=== PATIENT | female | born 1955 | race Caucasian/White ===

== ENCOUNTER → 2017-04-28 14:56 | Outpatient (CLI) | payer BC, SELFPAY ==
--- NOTE | 2017-04-28 14:59 | MM_ITS ---
MM Dig screening mamm BI w/CAD CAD Screening COMPARISON: Digital mammograms 03/26/2016 and 03/15/2015 INDICATION: There is a history of breast cancer in a patient maternal cousin. TECHNIQUE: Standard CC and MLO images were obtained. R2 CAD reviewed. FINDINGS: Moderate fiber glandular densities are seen in the central portions of both breasts. There are stable tiny nodular density upper outer quadrant right breast. There is a benign-appearing calcification left breast. There is no suspicious lesion and there are no suspicious microcalcifications. IMPRESSION: BI-RADS Category: 2 Benign Finding(s) RECOMMENDED FOLLOW-UP: 1YR - 1 YEAR FOLLOW-UP (A letter has been sent to the patient regarding results of the study.)
--- NOTE | 2017-04-28 14:59 | XR_ITS ---
XR DEXA axial skeleton HISTORY: ITS.REASON: Menopausal ORDERING PHYSICIAN: David Jimenez MD PATIENT AGE: 62 years COMPARISON: None FINDINGS: The BMD measured at the left femoral neck is 0.856 g/cm squared with a T score of T-1.3 . This is considered Osteopenic according to the World Health Organization criteria. Fracture risk is Moderate. Treatment is advised. The L1 L4 density has a T score of 0.2. The lumbar spine density has increased by 1.5% and the hip density has increased by 0.3% compared to 03/26/2016 IMPRESSION: Osteopenia with moderate fracture risk. Recommend follow-up exam April 2019
== END ==
PROVIDERS: Family Provider Family Medicine; PCP Family Medicine; Visit Provider Obstetrics & Gynecology
DX: Z12.31 Encounter for screening mammogram for malignant neoplasm of breast (principal); Z78.0 Asymptomatic menopausal state; Z13.820 Encounter for screening for osteoporosis
CPT/HCPCS: 77066; 77067; 77080

== ENCOUNTER → 2018-05-04 15:47 | Outpatient (CLI) | payer BC, SELFPAY ==
--- NOTE | 2018-05-04 15:49 | MM_ITS ---
MM Dig screening mamm BI w/CAD CAD Screening COMPARISON: Digital mammograms with CAD 04/28/2017 and 03/26/2016 INDICATION: There is a history of breast cancer in patient's paternal grandmother TECHNIQUE: Standard CC and MLO images were obtained. R2 CAD reviewed. FINDINGS: Moderate diffuse fibroglandular densities are seen throughout both breasts. Again noted is a stable tiny nodular density inner quadrant of the right breast and a stable tiny nodular density near the axillary tail the right breast likely a low-lying node.. There is a benign-appearing calcification in each breast. There is no suspicious lesion and there are no suspicious microcalcifications. IMPRESSION: Fibrofatty parenchyma with no suspicious lesion seen BI-RADS Category: 2 Benign Finding(s) RECOMMENDED FOLLOW-UP: 1YR - 1 YEAR FOLLOW-UP (A letter has been sent to the patient regarding results of the study.)
== END ==
PROVIDERS: PCP Family Medicine; Visit Provider Obstetrics & Gynecology
DX: Z12.31 Encounter for screening mammogram for malignant neoplasm of breast (principal)
CPT/HCPCS: 77067

== ENCOUNTER → 2020-04-05 10:56 | Outpatient (CLI) | payer MEDICARE, OTHER, SELFPAY ==
[2020-04-05 12:43] LABS: Coronavirus 19 IgG Antibody Negative (Negative); Coronavirus 19 IgM Antibody Negative (Negative)
== END ==
PROVIDERS: Visit Provider Internal Medicine Gastroenterology
DX: Z01.812 Encounter for preprocedural laboratory examination (principal); Z20.822 Contact with and (suspected) exposure to COVID-19; Z12.11 Encounter for screening for malignant neoplasm of colon
CPT/HCPCS: 36415; 86328

== ENCOUNTER 2020-04-06 07:49 | Day surgery (SDC) | payer MEDICARE, OTHER, SELFPAY ==
[2020-04-05 11:27] VITALS: BMI 26.5
[2020-04-06 08:29] VITALS: BP 151/70; PULSE 77; RESP 18; TEMP 36.2; O2SAT 98
[2020-04-06 09:08] VITALS: O2SAT 98
--- NOTE | 2020-04-06 09:37 | HMH.PROC ---
[facility] Procedure Note Procedure Note:: Colonoscopy Procedure Report: Colonoscopy with cold snare polypectomy Endoscopist: Bart Duque II, MD Referring physician: Raul Fang MD Date of Procedure: April 06, 2020 Equipment: Olympus 180 variable stiffness pediatric colonoscope Sedation: MAC sedation Indication: Mrs. Pascual is a 65-year-old female who is here for high risk screening colonoscopy. The patient does state that her brother had colon cancer in his late 40s/early 50s and her mother had colon cancer in her late 70s. The patient does state that she lost 10 pounds in 1 month and states this was because everything tasted salty. She also has had some bowel irregularity with diarrhea that alternates with constipation. She states that her last colonoscopy may have been in 2008 (with me). She reports no abdominal pain, rectal bleeding or change in bowel habits. Procedure: Prior to the procedure, a history and physical exam was performed, and patient's medications and allergies were reviewed. The risks, benefits and alternatives of the sedation and procedure were discussed with the patient. All questions were answered and informed consent was obtained. The patient was brought to the procedure room. Patient identification and proposed procedure were verified by the physician and the nurse. The patient was placed in a left lateral decubitus position and the scope was passed under direct vision. Throughout the procedure, the patient's blood pressure, pulse, and oxygen saturations were monitored continuously. The colonoscopy was accomplished without difficulty. The patient tolerated the procedure well. Findings: On digital rectal examination there was normal rectal tone. There were no external hemorrhoids. The colonoscope was introduced through the anal canal to the rectum and advanced to the cecum. The ileocecal valve and appendiceal orifice were identified. The scope was advanced a short distance into the ileum which appeared grossly normal. The scope was then withdrawn into the colon. There were 8 colon polyps (ascending x3 (3, 5 and 8 mm), sigmoid x4 (3, 3, 4 and 5 mm) and rectum x1 (5 mm)) which were all removed via cold snare polypectomy. There were no other mucosal abnormalities identified within the colon. Upon retroflexion within the rectum there were grade 1-2 internal hemorrhoids.The preparation was excellent throughout with Victor Preparation Score of 9. The cecal time was 14 minutes. Impression: 1. Diminutive colonic polyps x8 2. Grade 1-2 internal hemorrhoids Plan: I will follow up the polyp pathology and recommend repeat colonoscopy again in 3 years based upon the number of adenomatous polyps and patient's family history. I would encourage dietary measures and fiber bowel regimen on a long-term daily maintenance basis.
[2020-04-06 09:38] VITALS: BP 145/87; PULSE 94; RESP 18; TEMP 36.6; O2SAT 99
[2020-04-06 09:48] VITALS: BP 143/92; PULSE 86; RESP 18; O2SAT 97
[2020-04-06 09:58] VITALS: BP 137/68; PULSE 75; RESP 18; O2SAT 97
[2020-04-06 10:15] VITALS: BP 121/71; PULSE 73; RESP 18; O2SAT 98
--- NOTE | 2020-04-06 10:27 | SUR.PHASEII ---
1024 VALIUM 5 MG GIVEN FOR C/O ABD CRAMPING PER DR DILL ORDER.
--- NOTE | 2020-04-06 10:49 | HMH.ANESCL ---
[facility] Anesthesia Checklist - Patient Identification Patient Identification: Arm Band - Structural Data Admitted From: Home Planned Operative Procedure/s: colon Consent for Planned Operative Procedure(s) Verified: Yes Verified Documents: Surgical Consent - NPO Status Verified Time NPO: 00:00 - Anesthesia Plan Anesthesia Risk discussed: Yes Anesthesia Plan: Verified ASA Class: II Anesthesia Type: General [facility] History Medical History: Reports:: Kidney Stones Denies:: Cancer, Diabetes Mellitus Type 1, Diabetes Mellitus Type 2, Internal Pacemaker, MRSA, Seizures *Have you ever received a pneumonia vaccine?: No *Have you received a flu vaccine this season?: Yes Other Medical History: Reports: Fibromyalgia, Other Anesthesia experience/problems:: none Laterality Cases: Bilateral: Other Other Surgeries: Yes: Hysterectomy-Total, Tubal Ligation. No: Pacemaker Amputation: No Fractures: No - *Social History Last grade of school completed: High school graduate Smoking Status: Never smoker Alcohol Intake: current Alcohol Intake Frequency:: holidays/special occasions only Substance Use Type: denies use *Occupational Status:: retired Housing: house Household Members: spouse *Travel in the last 8 weeks: None Family Hx:: Cancer, Diabetes
== END 2020-04-06 10:29 | disposition home or self-care (01) ==
LOC: OUTP 07:53
PROVIDERS: PCP Family Medicine; Visit Provider Internal Medicine Gastroenterology
PROC: 0DJD8ZZ Inspection of Lower Intestinal Tract, Via Natural or Artificial Opening Endoscopic (ICD-10-PCS; CPT 45378; principal; 2020-04-06 09:00)
DX: Z12.11 Encounter for screening for malignant neoplasm of colon (principal); K64.0 First degree hemorrhoids; K63.5 Polyp of colon; K62.1 Rectal polyp; Z80.0 Family history of malignant neoplasm of digestive organs
CPT/HCPCS: 45385

== ENCOUNTER → 2020-06-28 13:00 | Outpatient (CLI) | payer MEDICARE, SELFPAY ==
--- NOTE | 2020-06-28 13:00 | MM_ITS ---
PROCEDURE INFORMATION: Exam: MG Screening 3D Mammography Exam date and time: 06/28/2020 1:00 PM Age: 65 years old Clinical indication: Screening exam; Family history of breast cancer; Additional info: Screening mammogram TECHNIQUE: Imaging protocol: Screening tomosynthesis and 2D mammography including computer-aided detection (CAD) when performed. COMPARISON: 05/04/2018. 04/28/2017. 02/28/2014. FINDINGS: MAMMOGRAPHY: Breast composition: The breasts are heterogeneously dense, which may obscure small masses. Mass: No new suspicious masses. Stable subcentimeter benign-appearing intramammary lymph nodes with fatty deacon in the posterior right upper outer quadrant and right lower inner quadrant, middle depth. Architectural distortion: No suspicious distortion. Calcifications: No suspicious calcifications. Asymmetric density: None. Skin thickening: None. Axillary adenopathy: None. IMPRESSION: No mammographic evidence of malignancy. Annual screening is recommended unless otherwise clinically indicated. ASSESSMENT: BI-RADS Category 2: Benign
== END ==
PROVIDERS: PCP Family Medicine; Visit Provider Obstetrics & Gynecology
DX: Z12.31 Encounter for screening mammogram for malignant neoplasm of breast (principal)
CPT/HCPCS: 77063; 77067

== ENCOUNTER 2020-10-19 17:53 | Emergency (ER) | payer MEDICARE, OTHER, SELFPAY ==
[2020-10-19 18:05] VITALS: BP 136/92; PULSE 80; RESP 22; TEMP 37.8; O2SAT 97; BMI 27.3
--- NOTE | 2020-10-19 18:54 | HMH.EDUTC ---
[facility] Disposition Clinical Impression: Sinusitis Qualifiers: Sinusitis location: unspecified location Chronicity: unspecified Qualified Code(s): J32.9 - Chronic sinusitis, unspecified Disposition: Home, Self-Care Condition on Discharge: Good Instructions: Sinusitis, DI for Sinusitis, Prednisone, Doxycycline, DI for COVID-19 (Suspected or Confirmed ), Coronavirus Disease 2019, Preventing the Spread of Coronavirus Discharge Instructions Additional Instructions: *Monitor Temp, Over the counter Motrin or Tylenol as directed/as needed Tylenol every 4 hours and Motrin every 6 hours (as long as your family doctor has told you that you can take it) for fever or pain. and straight to ER if unable to lower temp less than 101.0 after medication given *Warm salt water gargles may help to soothe the throat *Throat Lozenges *Warm fluids like tea with honey may help to soothe the throat *Sleep elevated *Humidifier/Vaporizer Follow up IMMEDIATELY for new or worsening symptoms or no Noticeable improvement over the next 48-72 hours. 911 for difficulty breathing or swallowing You were tested for today for COVID19 your test result should be back in the next 24-48 hours, you may call to the [facility] to see if your test results are back in the next 48 hours [phone] [facility] hours are 9am-9pm You was given a handout with instructions for Self Quarantine and Self isolation for while you wait on test results and what to do if they are positive If you are positive the Health Dept will be contacting you also Make sure to take your Vitamins Vit. C Vit D and Zinc if you can take them Prescriptions: Albuterol Sulfate [Proventil-HFA 90mcg/puff Inh] 1 - 2 puffs IH Q4HP PRN #1 each PRN Reason: Shortness Of Breath Transmission Status: Received by [facility] predniSONE [Deltasone 10mg tablet] 10 mg PO BID 5 Days #10 tab Transmission Status: Received by [facility] Doxycycline Monohydrate [Doxycycline Adams 100mg Tab] 100 mg PO Q12 7 Days #14 tab Transmission Status: Received by [facility] Benzonatate [Tessalon Perle 100mg Cap*] 100 mg PO TID PRN #30 cap PRN Reason: Cough Transmission Status: Received by [facility] Referrals: Raul Fang MD [Primary Care Provider] - As needed Time of Disposition: 19:04 Medical Decision Making - Bean Inquiry Pt receiving controlled substance: No Bean was queried for this patient: No Vital Signs: 10/19/20 18:05 10/19/20 19:03 Temperature 100.0 F H 100 F H Temperature Source Oral Pulse Rate 80 Pulse Rate [Right Brachial] 80 Respiratory Rate 22 22 Blood Pressure 136/92 H Blood Pressure [Right Arm] 136/92 H Blood Pressure Mean [Right Arm] 106 Blood Pressure Source [Right Arm] Automatic Cuff Blood Pressure Position [Right Arm] Sitting 02 Sat by Pulse Oximetry 97 Oxygen Delivery Method Room Air Orders (Tests/Meds): ORDERS Category Date Time Status Covid-19 Nasal PCR ([facility]) Routine Lab 10/19/20 18:20 Received Medical Decision Narrative: Patient states that she has taken prednisone in the past without complications or reactions [facility] HPI - General Stated complaint: covid test w symptoms Time Seen by Provider: 10/19/20 18:54 Mode of Arrival: Ambulatory Source of Information: Patient Limitations: No Limitations Description of Symptoms (Recalled from Triage Doc. by RN): PATIENT C/O COUGH, AND RUNNY NOSE X 2 DAYS. DIRECT EXPOSURE TO COVID HEENT Symptoms (Recalled from RN notes): Yes Resp Symptoms (Recalled from RN notes): Yes Skin Symptoms (Recalled from RN notes): No MS Symptoms (Recalled from RN notes): No Functional Status (Recalled from RN notes): WNL - History of Present Illness Provider Complaint: Patient state that she was around someone recently that tested positive for COVID States that she has been having sinus congestion and pressure for about a week and got worse over the last couple of days and got drainage in the back of her throat that
[2020-10-19 19:03] VITALS: BP 136/92; PULSE 80; RESP 22; TEMP 37.7; O2SAT 97
== END 2020-10-19 19:19 | disposition home or self-care (01) ==
LOC: UTC 19:13
PROVIDERS: Emergency Provider Nurse Practitioner; PCP Family Medicine
DX: J32.9 Chronic sinusitis, unspecified (principal); Z20.822 Contact with and (suspected) exposure to COVID-19
CPT/HCPCS: G0463; 99202; U0003

== ENCOUNTER → 2020-11-27 11:43 | Outpatient (CLI) | payer MEDICARE, OTHER, SELFPAY ==
--- NOTE | 2020-11-27 11:50 | XR_ITS ---
PROCEDURE: XR CHEST 2V CLINICAL HISTORY: COUGH COMPARISON: CR CXR CHEST(2 VIEWS-NOT PORTABLE) from 12/15/2014 FINDINGS: The cardiomediastinal silhouette and pulmonary vascularity are within normal limits. The lungs are clear without infiltrates, suspicious nodules, or pleural effusions. Calcified granuloma left lower lobe. No acute bony abnormalities. IMPRESSION: No acute findings. Dictated by: Rex Andrade MD 11/27/2020 14:29 Rex Andrade MD in [place] 11/27/2020 14:29
== END ==
PROVIDERS: PCP Family Medicine; Visit Provider Allergy & Immunology
DX: R05 Cough (principal)
CPT/HCPCS: 71046

== ENCOUNTER → 2021-04-08 12:20 | Outpatient (CLI) | payer MEDICARE, OTHER, SELFPAY ==
[2021-04-09 06:39] LABS: Covid-19 Nasal PCR Sendout Lex POSITIVE
== END ==
PROVIDERS: Visit Provider Nurse Practitioner
DX: U07.1 COVID-19 (principal)
CPT/HCPCS: C9803; U0004; U0005

== ENCOUNTER 2021-11-15 16:00 | Outpatient (RCR) | payer MEDICARE, OTHER, SELFPAY | END 2021-11-15 16:05 | disposition home or self-care (01) | LOC: PT 16:00 | PROVIDERS: Visit Provider Neurological Surgery | DX: M47.816 Spondylosis without myelopathy or radiculopathy, lumbar region (principal); M51.36 Other intervertebral disc degeneration, lumbar region | CPT/HCPCS: 97010; 97014; 97110; 97112; 97140; 97163; 97530; G0283 ==

== ENCOUNTER → 2022-06-02 12:44 | Outpatient (CLI) | payer MEDICARE, SELFPAY ==
--- NOTE | 2022-06-02 12:55 | MM_ITS ---
PROCEDURE INFORMATION: Exam: MG Bilateral Screening 3D Mammography Exam date and time: 06/02/2022 1:04 PM Age: 67 years old Clinical indication: Screening. No family history of breast cancer. TECHNIQUE: Imaging protocol: Bilateral Screening tomosynthesis and 2D mammography including computer-aided detection (CAD) when performed. COMPARISON: 1. MG MM DIG SCREENING MAMM BI W/CAD 06/28/2020 1:13 PM 2. MG SCBI MM Dig screening mamm BI w/CAD 05/04/2018 3:56 PM 3. MG SCBI MM Dig screening mamm BI w/CAD 04/28/2017 3:25 PM 4. MG DMSB DIG MAMM-SCREEN RYAN W/CAD 03/26/2016 9:42 AM FINDINGS: MAMMOGRAPHY: Breast composition: The breasts are heterogeneously dense, which may obscure small masses. Mass: No suspicious mass. Architectural distortion: None. Calcifications: No suspicious calcifications. Asymmetric density: None. Skin thickening: None. Axillary adenopathy: None. IMPRESSION: No mammographic evidence of malignancy. Annual screening is recommended unless otherwise clinically indicated. ASSESSMENT: BI-RADS Category 1: Negative
== END ==
PROVIDERS: PCP Family Medicine; Visit Provider Obstetrics & Gynecology
DX: Z12.31 Encounter for screening mammogram for malignant neoplasm of breast (principal)
CPT/HCPCS: 77063; 77067

== ENCOUNTER 2023-08-28 08:59 | Day surgery (SDC) | payer MEDICARE, SELFPAY ==
[2023-08-26 13:09] VITALS: BMI 28.3
[2023-08-28 09:18] VITALS: BP 131/60; PULSE 68; RESP 16; TEMP 36.5; O2SAT 95; BMI 28.3
--- NOTE | 2023-08-28 09:35 | EXP.ANES.CKL ---
[facility] Disclaimer: The information contained in this section may have been updated after the patient was seen, as this information can be updated by other users. Medical History Restless leg syndrome Depression Anxiety Hyperlipemia Hypertension Surgical History Status post trigger finger release History of carpal tunnel release History of hysterectomy Family History Other No significant family history Social History Smoking Status: Former smoker second hand exposure: No alcohol intake: never substance use type: denies use current occupational status: other Travel in the last 8 weeks: None household members: spouse housing: house current occupational exposures/hazards: No caffeine: Yes [facility] Anesthesia Checklist Patient Identification Patient Identification: Verbal (Name & ) Structural Data Admitted From: Home Planned Operative Procedure/s: colonoscopy Consent for Planned Operative Procedure(s) Verified: Yes NPO Status Verified Time NPO: 00:00 Airway Assessment Mallampati Score:: Class II C-Spine Mobility Assessed: Yes TMJ Mobility Assessed: Yes Dentition: Good Dentition Neurological Assessment Level of Consciousness: Awake, Alert and Appropriate Anesthesia Plan Anesthesia Risk discussed: Yes Anesthesia Plan: Verified ASA Class: II Anesthesia Type: MAC
--- NOTE | 2023-08-28 09:55 | HMH.SCOPE ---
Procedure: Date: 08/28/23 Patient Date of :: 1955 Procedure Performed:: Partial colonoscopy Indications:: Patient is a 68-year-old female who presents for follow-up high risk surveillance colonoscopy. She had a brother that had colon cancer in his 40s or 50s. Mother had colon cancer at approximately age 70. Last colonoscopy was with Dr. Duque on 04/06/2020 and she had 8 polyps removed with multiple tubular adenomas. Recommendation was for 3-year follow-up colonoscopy. . Performing Provider:: Ronnie Sanches MD . Referring Provider:: Raul Fang MD . Sedation:: MAC sedation Procedure:: Patient history was obtained and appropriate physical examination was performed. Patient's medications and allergies were reviewed. Informed consent was obtained after explaining the benefits, alternatives, and risks of the procedure including, but not limited to, bleeding, perforation, missed lesions, and adverse reaction to anesthesia medications. Patient was transported to endoscopy procedure room. Patient was connected to monitoring devices. Throughout the procedure the patient's blood pressure, pulse, and oxygen saturations were monitored continuously. Patient identification and planned procedure were verified by the staff. Patient was positioned in lateral decubitus position. Digital anorectal exam was performed. Variable stiffness Olympus colonoscope was inserted and advanced under direct visualization to the right colon. Adequacy of the colonic preparation was noted. Colonic preparation was quite poor. There were multiple regions of the colon upon advancement that had opaque occasionally semiformed and particulate stool with a large amount of vegetable matter. Attempts were made for clearance with high-volume trans colonoscopic irrigation and suctioning which was unsuccessful. Upon advancing the colonoscope ultimately beyond the apparent hepatic flexure there was a very large amount of stool in the right colon. Therefore procedure was aborted and the colonoscope was withdrawn. There were no obvious obstructing masses. . Findings:: Incomplete colonoscopy due to poor colonic preparation Recommendations:: Reschedule repeat colonoscopy with several days low residue diet and maximum multi day prep Complications:: None immediately apparent Estimated blood obtained (mL): 0 Colonoscopy Component Colonoscopy Component Was a colonoscopy performed during today's procedure?: Yes Recommended follow up colonoscopy of at least 10 years?: No If no, follow up colonoscopy recommended in ___ years?: See above Reason for not recommending >/= 10 yr follow-up interval?: See above
[2023-08-28 10:30] VITALS: BP 135/71; PULSE 88; RESP 18; TEMP 36.4; O2SAT 97
[2023-08-28 10:40] VITALS: BP 156/78; PULSE 73; RESP 18; O2SAT 95
[2023-08-28 10:50] VITALS: BP 158/83; PULSE 65; RESP 18; O2SAT 95
--- NOTE | 2023-08-28 10:52 | SUR.PHASEII ---
Pt C/O sharp abdominal pain LRQ, syas it feels like gas. Notified Dr. Sanches, no new orders. Pt requested to get up to go to bathroom.
[2023-08-28 11:00] VITALS: BP 158/92; PULSE 58; RESP 18; O2SAT 96
[2023-08-28 11:11] VITALS: BP 143/79; PULSE 61; RESP 18; O2SAT 97
== END 2023-08-28 11:19 | disposition home or self-care (01) ==
PROVIDERS: PCP Family Medicine; Visit Provider Surgery
PROC: 0DJD8ZZ Inspection of Lower Intestinal Tract, Via Natural or Artificial Opening Endoscopic (ICD-10-PCS; CPT 45330; principal; 2023-08-28 10:30)
DX: Z86.010 Personal history of colon polyps (principal); Z87.891 Personal history of nicotine dependence; Z80.0 Family history of malignant neoplasm of digestive organs
CPT/HCPCS: 45330

== ENCOUNTER 2024-06-19 16:22 | Emergency (ER) | payer MEDICARE, SELFPAY ==
[2024-06-19] VITALS (10 sets, daily range): BP systolic 135–172; BP diastolic 59–102; PULSE 69–86; RESP 13–22; TEMP 36.6–36.7; O2SAT 95–99; BMI 27.4
--- NOTE | 2024-06-19 16:36 | HMH.EDGENADL ---
Discharge Plan Disposition Patient Disposition: Home, Self-Care Condition: Good Prescriptions Prescriptions: New ondansetron 4 mg tablet,disintegrating 4 mg PO TID PRN (Reason: nausea and vomiting) 3 Days Qty: 9 0RF cephalexin 500 mg capsule 500 mg PO Q12H 7 Days Qty: 14 0RF No Action gabapentin 100 mg capsule 100 mg PO DAILY peg 3350-electrolytes [Golytely] 236-22.74-6.74 -5.86 gram recon soln 240 ml PO Q10M Qty: 4000 0RF Rx Instructions: until fecal effluent is clear albuterol sulfate 200 PUFFS HFA aerosol inhaler 1 - 2 puffs IH Q4HP PRN (Reason: Shortness Of Breath) Qty: 1 0RF citalopram [Celexa] 40 MG tablet 40 mg PO DAILY pravastatin 10 MG tablet 10 mg PO HS lisinopril 5 MG tablet 5 mg PO DAILY Referrals Follow up/Referrals: Raul Fang MD [Primary Care Provider] - See instructions Activity Restrictions/Add. Instructions Additional Instructions/Restrictions: You were seen for abdominal pain. You did have some fatty liver on CT, please follow up with your PCP for further workup. Clinical Impressions Clinical Impression: Fatty liver, Abdominal pain Instructions Patient Instructions: DI for Acute Abdominal Pain Print Language Print Language: Persian Discharge ED Provider: Jaime Mcbride General Adult HPI <NANY Shirley - Last Filed: 06/19/24 20:30> General Chief complaint: Abdominal Pain Stated complaint: vomiting,pain right side radiating to back Time Seen by Provider: 06/19/24 16:29 History of Present Illness HPI narrative: Patient presents complaining of right upper quadrant pain described as pressure. She has had nausea and vomiting as well. Symptom started yesterday evening at 9 PM. She reports the pain is radiating to her back. She has had some chills and sweats. She did have a fatty lunch yesterday, reports she had fried chicken and potato wedges. complaint: Abdominal pain Onset (ago): day(s) (2) Location: abdomen Radiation: back Severity: moderate Quality: other (pressure, squeezing ) Consistency: intermittent Relieving factors: none Exacerbating factors: none Associated symptoms: negative fever/chills Treatments prior to arrival: none Related Data Home Medications ?Medication ?Instructions ?Recorded ?Confirmed citalopram 40 mg tablet (Celexa) 40 mg PO DAILY Depression 04/06/20 08/26/23 lisinopril 5 mg tablet 5 mg PO DAILY bp 04/06/20 08/26/23 pravastatin 10 mg tablet 10 mg PO HS Cholesterol 04/06/20 08/26/23 gabapentin 100 mg capsule 100 mg PO DAILY 06/21/20 08/26/23 Previous Rx's ?Medication ?Instructions ?Recorded albuterol sulfate 90 mcg/actuation 1 - 2 puffs IH Q4HP PRN Shortness 10/19/20 aerosol inhaler Of Breath #1 ea peg 3350-electrolytes 236 240 ml PO Q10M #4,000 mL 08/26/23 gram-22.74 gram-6.74 gram-5.86 gram solution (Golytely) cephalexin 500 mg capsule 500 mg PO Q12H 7 days #14 caps 06/19/24 ondansetron 4 mg disintegrating 4 mg PO TID PRN nausea and 06/19/24 tablet vomiting 3 days #9 tabs Allergies Allergy/AdvReac Type Severity Reaction Status Date / Time No Known Drug Allergies Allergy Unknown Hives Verified 06/19/24 16:38 (NKDA) [facility] <NANY Shirley - Last Filed: 06/19/24 20:30> [facility] Disclaimer: The information contained in this section may have been updated after the patient was seen, as this information can be updated by other users. Medical History (Updated 06/19/24 @ 20:17 by NANY Shirley) Restless leg syndrome Depression Anxiety Hyperlipemia Hypertension Surgical History Status post trigger finger release History of carpal tunnel release History of hysterectomy Family History Other No significant family history Social History Smoking Status: Former smoker second hand exposure: No alcohol intake: never substance use type: denies use current occupational status: other Travel in the last 8 weeks: None household members: spouse housing: house current occupational exposures/hazards: No caffeine: Yes Have you lived/traveled outside [place] in past 30 days?: No Contact w/someone who lives/traveled outside US past 30 days?: No Exposure to someone with infectious disease in past 14 days?: No Do you have a fever (greater than 100.4 F or 38 C)?: No Have you tested positive for COVID-19: No Exposed to someone with COVID-19 in past 14 days?: No Do you have a sore throat?: No Do you have a cough?: No Do you have any weakness?: No Do you have any diarrhea?: No Are you experiencing any unusual bleeding?: No Do you have any muscle aches/pain?: Yes Do you have any abdominal pain?: Yes Are you experiencing loss of taste or smell?: No Other Medical History Have you received the Flu Vaccine for this season: Yes Have you received the Pneumonia Vaccine: No <NANY Shirley - Last Filed: 06/19/24 20:30> ROS Obtained: Yes Systems reviewed as appropriate & no additional complaints except as documented Physical Exam <NANY Shirley Last Filed: 06/19/24 20:30> General General appearance: alert and in no apparent distress Head Head exam: atraumatic and normocephalic Eye Eye exam: Present normal appearance and EOMI Chest Chest inspection: Present symmetric chest wall rise Respiratory Respiratory exam: Present normal lung sounds bilaterally; Absent wheezes or stridor Cardiovascular Cardiovascular exam: Present regular rate and normal rhythm; Absent systolic murmur Abdominal Exam Abdominal exam: Present guarding and normal bowel sounds Abdominal tenderness: Present RUQ Extremities Exam Extremities exam: Present full ROM Neurological Exam Neurological exam: Present alert and oriented X3 Psychiatric Psychiatric exam: Present normal affect and normal mood Skin Skin exam: Present warm, dry and intact Medical Decision Making <NANY Shirley - Last Filed: 06/19/24 20:30> Medical Records Screening: Per USPSTF and CDC recommendations, given the prevalence of disease in our region, it is our hospital?s policy to screen for HIV and viral Hepatitis for all patients aged 18 and over and those with ongoing risk factors. Bean Inquiry Pt receiving controlled substance: No Vital Signs: 06/19/24 16:29 06/19/24 16:32 06/19/24 17:30 Temperature 98.1 F Temperature Source Oral Pulse Rate 70 71 Pulse Rate [Left Radial] 86 Respiratory Rate 18 14 Blood Pressure 172/96 H 135/81 Blood Pressure [Right Arm] 172/96 H Blood Pressure Mean [Right Arm] 121 Blood Pressure Source Automatic Cuff Blood Pressure Position 02 Sat by Pulse Oximetry 97 95 98 Oxygen Delivery Method Room Air Room Air 06/19/24 17:45 06/19/24 18:00 06/19/24 18:16 Temperature Temperature Source Pulse Rate 74 74 Pulse Rate [Left Radial] Respiratory Rate 13 14 13 Blood Pressure 137/76 136/67 140/94 H Blood Pressure [Right Arm] Blood Pressure Mean [Right Arm] Blood Pressure Source Blood Pressure Position 02 Sat by Pulse Oximetry 96 97 98 Oxygen Delivery Method Room Air Room Air Room Air 06/19/24 18:30 06/19/24 18:46 06/19/24 19:00 Temperature Temperature Source Pulse Rate 75 75 73 Pulse Rate [Left Radial] Respiratory Rate 15 22 20 Blood Pressure 156/102 H 147/83 H 150/59 H Blood Pressure [Right Arm] Blood Pressure Mean [Right Arm] Blood Pressure Source Blood Pressure Position 02 Sat by Pulse Oximetry 98 99 99 Oxygen Delivery Method Room Air 06/19/24 20:27 Temperature 98 F Temperature Source Oral Pulse Rate 69 Pulse Rate [Left Radial] Respiratory Rate 14 Blood Pressure 149/69 H Blood Pressure [Right Arm] Blood Pressure Mean [Right Arm] Blood Pressure Source Blood Pressure Position Sitting 02 Sat by Pulse Oximetry Oxygen Delivery Method Room Air Lab Data Lab Results 06/19/24 06:28: Urine Color Yellow, Urine Appearance Clear, Urine pH 7.0, Ur Specific Stephan 1.020, Urine Protein 1+ A, Urine Glucose (UA) Negative, Urine Ketones Negative, Urine Blood Trace-l, Urine Nitrate Negative, Urine Bilirubin Negative, Urine Urobilinogen 1.0, Ur Leukocyte Esterase 2+ A, Urine RBC 3-5, Urine WBC 5-10, Ur Squamous Epith Cells Occasional, Urine Bacteria 2+ 06/19/24 16:55: WBC 8.7, RBC 4.11 L, Hgb 12.6, Hct 36.1 L, MCV 87.8, MCH 30.7, MCHC 34.9, RDW 13.2, Plt Count 205, MPV 11.8 H, Neut % (Auto) 57.8, Lymph % (Auto) 35.1, Mccormick % (Auto) 6.4, Eos % (Auto) 0.2, Baso % (Auto) 0.2, Neut # (Auto) 5.0, Lymph # (Auto) 3.1, Mccormick # (Auto) 0.6, Eos # (Auto) 0.0, Baso # (Auto) 0.0 06/19/24 16:57: Sodium 138, Potassium 4.3, Chloride 105, Carbon Dioxide 22, Anion Gap 15.3 H, BUN 19 H, Creatinine 0.80, Estimated Creat Clear 57, Estimated GFR 71, Est GFR ( Amer) 86, Glucose 107 H, Lactate 1.2, Calcium 9.5, Total Bilirubin 0.7, AST 34, ALT 20, Alkaline Phosphatase 143 H, Troponin I < 0.01, Total Protein 8.5 H, Albumin 4.8, Globulin 3.7 H, Albumin/Globulin Ratio 1.3, Lipase 69, HCV Ab MINO w/Rflx PCR Qn Negative, HIV Ag/Ab Combo Qual Negative 06/19/24 16:55 06/19/24 16:57 Orders (Tests/Meds): ED MEDICATIONS Discontinued Medications Generic Name Dose Route Start Last Admin Trade Name Freq PRN Reason Stop Dose Admin Iopamidol 75 ml 06/19/24 18:39 06/19/24 18:42 Iopamidol-370 (76%);100ml Bottle IV 06/19/24 18:40 75 ml ONCE ONE Administration Morphine Sulfate 4 mg 06/19/24 16:33 06/19/24 17:05 Morphine 4mg/Ml Syringe IV 06/19/24 16:34 4 mg ONCE ONE Administration Ondansetron HCl 4 mg 06/19/24 16:33 06/19/24 17:05 Ondansetron 4mg/2ml Vial IV 06/19/24 16:34 4 mg ONCE ONE Administration Sodium Chloride 10 ml 06/19/24 16:33 Sodium Chloride 0.9% 10ml Flush Syringe IV 07/19/24 16:32 NEEDED PRN Maintain IV Site Sodium Chloride 10 ml 06/19/24 18:39 06/19/24 18:43 Sodium Chloride 0.9% 10ml Syr (Rad Only) IV 07/19/24 18:38 10 ml NEEDED PRN Administration Maintain IV Site ORDERS Category Date Time Status CT abdomen pelvis w con Stat Cat Scan 06/19/24 18:15 Completed POCUS Point of Care (ER Only) Stat Exams 06/19/24 17:31 Taken CBC [Complete Blood Count Auto Diff] Stat Lab 06/19/24 16:55 Completed CMP [Comprehensive Metabolic Panel] Stat Lab 06/19/24 16:57 Completed HIV Combo Stat Lab 06/19/24 16:57 Completed Hepatitis C Ab Qual. W/ RFX Stat Lab 06/19/24 16:57 Completed Lactic Acid Stat Lab 06/19/24 16:57 Completed Lipase Stat Lab 06/19/24 16:57 Completed Troponin I Q3H Lab 06/19/24 21:45 Ordered Troponin I Stat Lab 06/19/24 16:57 Completed Urinalysis and Microscopic Stat Lab 06/19/24 06:28 Completed Urine Culture Stat Micro 06/19/24 06:[address] CT Scan: Abdomen (IMPRESSION: There is diffuse hypoattenuation of the liver compatible with moderate hepatic steatosis. ) Time Received: 20:14 Medical Decision Narrative: In summary patient is a 69-year-old female who presents the emergency department for evaluation of right upper quadrant pain. Patient is slightly hypertensive upon arrival, afebrile. Right upper quadrant tenderness on exam. Differential diagnosis includes cholelithiasis, cholecystitis, gastritis, pancreatitis. Initial workup will be conducted with labs, urinalysis, POCUS. Initial inventions include morphine, Zofran. Initial workup reviewed by az labs unremarkable, [id number] ultrasound reveals normal gallbladder, CT abdomen/pelvis reveals fatty. Started on keflex for UTI. Upon repeat evaluation patient acceptable resolution of symptom. Given this patient is appropriate for discharge home with prescription for Zofran. Instructed to follow-up with her PCP for further evaluation.. <Jaime Mcbride MD - Last Filed: 06/19/24 20:51> Vital Signs: 06/19/24 16:29 06/19/24 16:32 06/19/24 17:30 Temperature 98.1 F Temperature Source Oral Pulse Rate 70 71 Pulse Rate [Left Radial] 86 Respiratory Rate 18 14 Blood Pressure 172/96 H 135/81 Blood Pressure [Right Arm] 172/96 H Blood Pressure Mean [Right Arm] 121 Blood Pressure Source Automatic Cuff Blood Pressure Position 02 Sat by Pulse Oximetry 97 95 98 Oxygen Delivery Method Room Air Room Air 06/19/24 17:45 06/19/24 18:00 06/19/24 18:16 Temperature Temperature Source Pulse Rate 74 74 Pulse Rate [Left Radial] Respiratory Rate 13 14 13 Blood Pressure 137/76 136/67 140/94 H Blood Pressure [Right Arm] Blood Pressure Mean [Right Arm] Blood Pressure Source Blood Pressure Position 02 Sat by Pulse Oximetry 96 97 98 Oxygen Delivery Method Room Air Room Air Room Air 06/19/24 18:30 06/19/24 18:46 06/19/24 19:00 Temperature Temperature Source Pulse Rate 75 75 73 Pulse Rate [Left Radial] Respiratory Rate 15 22 20 Blood Pressure 156/102 H 147/83 H 150/59 H Blood Pressure [Right Arm] Blood Pressure Mean [Right Arm] Blood Pressure Source Blood Pressure Position 02 Sat by Pulse Oximetry 98 99 99 Oxygen Delivery Method Room Air 06/19/24 20:27 Temperature 98 F Temperature Source Oral Pulse Rate 69 Pulse Rate [Left Radial] Respiratory Rate 14 Blood Pressure 149/69 H Blood Pressure [Right Arm] Blood Pressure Mean [Right Arm] Blood Pressure Source Blood Pressure Position Sitting 02 Sat by Pulse Oximetry Oxygen Delivery Method Room Air Lab Data Lab Results 06/19/24 06:28: Urine Color Yellow, Urine Appearance Clear, Urine pH 7.0, Ur Specific Stephan 1.020, Urine Protein 1+ A, Urine Glucose (UA) Negative, Urine Ketones Negative, Urine Blood Trace-l, Urine Nitrate Negative, Urine Bilirubin Negative, Urine Urobilinogen 1.0, Ur Leukocyte Esterase 2+ A, Urine RBC 3-5, Urine WBC 5-10, Ur Squamous Epith Cells Occasional, Urine Bacteria 2+ 06/19/24 16:55: WBC 8.7, RBC 4.11 L, Hgb 12.6, Hct 36.1 L, MCV 87.8, MCH 30.7, MCHC 34.9, RDW 13.2, Plt Count 205, MPV 11.8 H, Neut % (Auto) 57.8, Lymph % (Auto) 35.1, Mccormick % (Auto) 6.4, Eos % (Auto) 0.2, Baso % (Auto) 0.2, Neut # (Auto) 5.0, Lymph # (Auto) 3.1, Mccormick # (Auto) 0.6, Eos # (Auto) 0.0, Baso # (Auto) 0.0 06/19/24 16:57: Sodium 138, Potassium 4.3, Chloride 105, Carbon Dioxide 22, Anion Gap 15.3 H, BUN 19 H, Creatinine 0.80, Estimated Creat Clear 57, Estimated GFR 71, Est GFR ( Amer) 86, Glucose 107 H, Lactate 1.2, Calcium 9.5, Total Bilirubin 0.7, AST 34, ALT 20, Alkaline Phosphatase 143 H, Troponin I < 0.01, Total Protein 8.5 H, Albumin 4.8, Globulin 3.7 H, Albumin/Globulin Ratio 1.3, Lipase 69, HCV Ab MINO w/Rflx PCR Qn Negative, HIV Ag/Ab Combo Qual Negative Orders (Tests/Meds): ED MEDICATIONS Discontinued Medications Generic Name Dose Route Start Last Admin Trade Name Freq PRN Reason Stop Dose Admin Iopamidol 75 ml 06/19/24 18:39 06/19/24 18:42 Iopamidol-370 (76%);100ml Bottle IV 06/19/24 18:40 75 ml ONCE ONE Administration Morphine Sulfate 4 mg 06/19/24 16:33 06/19/24 17:05 Morphine 4mg/Ml Syringe IV 06/19/24 16:34 4 mg ONCE ONE Administration Ondansetron HCl 4 mg 06/19/24 16:33 06/19/24 17:05 Ondansetron 4mg/2ml Vial IV 06/19/24 16:34 4 mg ONCE ONE Administration Sodium Chloride 10 ml 06/19/24 16:33 Sodium Chloride 0.9% 10ml Flush Syringe IV 07/19/24 16:32 NEEDED PRN Maintain IV Site Sodium Chloride 10 ml 06/19/24 18:39 06/19/24 18:43 Sodium Chloride 0.9% 10ml Syr (Rad Only) IV 07/19/24 18:38 10 ml NEEDED PRN Administration Maintain IV Site ORDERS Category Date Time Status CT abdomen pelvis w con Stat Cat Scan 06/19/24 18:15 Completed POCUS Point of Care (ER Only) Stat Exams 06/19/24 17:31 Taken CBC [Complete Blood Count Auto Diff] Stat Lab 06/19/24 16:55 Completed CMP [Comprehensive Metabolic Panel] Stat Lab 06/19/24 16:57 Completed HIV Combo Stat Lab 06/19/24 16:57 Completed Hepatitis C Ab Qual. W/ RFX Stat Lab 06/19/24 16:57 Completed Lactic Acid Stat Lab 04/13/25 16:57 Completed Lipase Stat Lab 06/19/24 16:57 Completed Troponin I Q3H Lab 06/19/24 21:45 Ordered Troponin I Stat Lab 06/19/24 16:57 Completed Urinalysis and Microscopic Stat Lab 06/19/24 06:28 Completed Urine Culture Stat Micro 06/19/24 06:28 Received ECG Data Tracing #1: I reviewed this ECG and interpreted as documented below: (Sinus rhythm 73 bpm ID 152, QRS 70, QTc 405. Normal axis no acute ischemic change) Medical Decision Narrative: In summary patient is a 69-year-old female who presents the emergency department for evaluation of right upper quadrant pain. Patient is slightly hypertensive upon arrival, afebrile. Right upper quadrant tenderness on exam. Differential diagnosis includes cholelithiasis, cholecystitis, gastritis, pancreatitis. Initial workup will be conducted with labs, urinalysis, POCUS. Initial inventions include morphine, Zofran. Initial workup reviewed by me labs unremarkable, [id number] ultrasound reveals normal gallbladder, CT abdomen/pelvis reveals fatty. Started on keflex for UTI. Upon repeat evaluation patient acceptable resolution of symptom. Given this patient is appropriate for discharge home with prescription for Zofran. Instructed to follow-up with her PCP for further evaluation.. I was consulted by the GREGOR, and we discussed the complexity of the problems being addressed. I approved the treatment and management plan for this patient's care in the Emergency Department, thus performing a substantive portion of the medical decision making. Jaime Mcbride MD Procedures <Jaime Mcbride MD - Last Filed: 06/19/24 20:51> Limited Ultrasound Indication:: Limited RUQ ultrasound Indication: Abdominal pain right upper quadrant radiating to back, vomiting Identified structures: -Gallbladder -Gallbladder wall -Common bile duct -Liver Findings: Sonographic Rogers sign: positive Gallstones: Absent Sludge: Absent Pericholecystic fluid: Absent Maximal GB wall thickness (mm) (normal is </= 3mm): Normal Common bile duct width (mm) (normal is </= 6mm): Normal Gallbladder width (cm) (normal is < 4cm): Normal Gallbladder length (cm) (normal is < 10cm): Normal Impression: Positive sonographic Rogers sign, but otherwise normal ultrasonography findings Images were saved to permanent archive The study was technically adequate CPT 14152-71 This study was performed by me, and I personally interpreted all images/videos. Based on my clinical judgement, these images were adequate and did not necessitate further imaging. Critical Care <NANY Shirley - Last Filed: 06/19/24 20:30> Critical Care Time Critical Care Time: No
[2024-06-19 16:39] LABS: Appearance,Urine CLEAR (Clear); Bilirubin,Urine Negative (Negative); Blood, Urine TRACE-L (Negative); Color,Urine YELLOW (Yellow); Glucose,Urine (UA) Negative (Negative); Ketones,Urine Negative (Negative); Leukocyte Esterase,Urine 2+ (Negative); Microscopic, Urine URINE MICROSCOPIC (MICROSCOPIC); Nitrate,Urine Negative (Negative); Protein,Urine 1+ (Negative)
[2024-06-19 16:48] LABS: Bacteria,Urine 2+ /lpf; Squamous Epithelial Cell,Urine Occasional #/hpf (0-5)
[2024-06-19 17:01] LABS: Basophils % 0.2 % (0.1-2.0); Eosinophils % 0.2 % (0.1-12.0); Hematocrit 36.1 % (37.0-47.0); Hemoglobin 12.6 g/dL (12.2-16.2); Lymphocytes # 3.1 K/mm3 (0.7-4.5); Lymphocytes % 35.1 % (10-50); Mean Corpuscular HGB Conc 34.9 g/dL (31.8-35.4); Mean Corpuscular Hemoglobin 30.7 pg (27.0-31.2); Mean Corpuscular Volume 87.8 fl (81-99); Mean Platelet Volume 11.8 fl (7.4-10.4); Monocytes # 0.6 K/mm3 (0.1-1.0); Monocytes % 6.4 % (1.7-9.3); Neutrophils % 57.8 % (37.0-80.0); Nucleated Red Blood Cells # 0 10^3/uL; Nucleated Red Blood Cells % 0 %; Platelet Count 205 K/mm3 (142-424); Red Blood Count 4.11 M/mm3 (4.20-5.40); Red Cell Distribution Width 13.2 % (11.5-17.5); Red Cell Distribution Width-SD 42.7 fL; White Blood Count 8.7 K/mm3 (4.8-10.8)
[2024-06-19] MEDS: ONDANSETRON 4MG/2ML VIAL 4 MG IV (17:05)
[2024-06-19] MEDS: MORPHINE 4MG/ML SYRINGE 4 MG IV (17:05)
[2024-06-19 17:21] LABS: Albumin Level 4.8 g/dl (3.5-5.0); Chloride 105 mmol/L (98-107); Sodium 138 mmol/L (136-145)
[2024-06-19 17:22] LABS: Potassium 4.3 mmoL/L (3.5-5.1)
[2024-06-19 17:24] LABS: Alanine Aminotransferase 20 U/L (12-78); Albumin/Globulin Ratio 1.3 (1.1-1.8); Alkaline Phosphatase 143 U/L (38-126); Anion Gap 15.3 mEq/L (5-15); Aspartate Amino Transferase 34 U/L (14-36); Bilirubin,Total 0.7 mg/dl (0.2-1.3); Blood Urea Nitrogen 19 mg/dl (7-17); Carbon Dioxide 22 mmol/L (22.0-30.0); Creatinine Clearance Estimated 57 mL/min (50-200); Estimated Glomerular Filt Rate 71 ml/min (>60); GFR (African American) 86 ML/MIN (>60); Globulin 3.7 g/dL (1.3-3.2); Lipase 69 U/L (23-300); Total Protein,Serum 8.5 g/dl (6.3-8.2)
[2024-06-19 17:25] LABS: Calcium 9.5 mg/dl (8.4-10.2); Glucose 107 mg/dl (74-100); Lactic Acid 1.2 mmol/L (0.7-2.1)
[2024-06-19 18:05] LABS: HIV Combo NEGATIVE (Negative)
--- NOTE | 2024-06-19 18:15 | CT_ITS ---
PROCEDURE INFORMATION: Exam: CT Abdomen And Pelvis With Contrast Exam date and time: 06/19/2024 6:32 PM Age: 69 years old Clinical indication: Abdominal pain; Additional info: Ruq pain TECHNIQUE: Imaging protocol: Computed tomography of the abdomen and pelvis with contrast. Radiation optimization: All CT scans at this facility use at least one of these dose optimization techniques: automated exposure control; mA and/or kV adjustment per patient size (includes targeted exams where dose is matched to clinical indication); or iterative reconstruction. Contrast material: ISOVUE; Contrast volume: 75 ml; Contrast route: IV; COMPARISON: CR XR CHEST 2V 11/27/2020 12:13 PM FINDINGS: Liver: There is diffuse hypoattenuation of the liver compatible with moderate hepatic steatosis. Gallbladder and biliary ducts: Normal. No calcified stones. No ductal dilation. Pancreas: Normal. No ductal dilation. Spleen: Multiple benign-appearing calcific densities of the spleen. Adrenal glands: Normal. No mass. Kidneys and ureters: Normal. No hydronephrosis. Stomach and bowel: Unremarkable. No obstruction. No mucosal thickening. Appendix: No evidence of appendicitis. Intraperitoneal space: Unremarkable. No free air. No significant fluid collection. Vasculature: Moderate calcific atherosclerotic disease of the abdominal aorta without aneurysmal dilatation is present. Lymph nodes: Unremarkable. No enlarged lymph nodes. Urinary bladder: Unremarkable as visualized. Reproductive: The uterus appears surgically absent. Bones/joints: Moderate loss of intervertebral disc space with degenerative changes involving L5-S1. Soft tissues: Normal. IMPRESSION: There is diffuse hypoattenuation of the liver compatible with moderate hepatic steatosis.
--- NOTE | 2024-06-19 18:30 | ECG_ITS ---
APPROVED REPORT Exam: Resting ECG HR:73 bpm ECG Measurements Heart Rate 73 AXES DC 152 P 53 QRSd 70 QRS 66 QT 379 T 79 QTc 405 Conclusion Sinus rhythm Electronically signed by : LYNN SHEPARD, 06/19/2024 22:29:24
[2024-06-19 18:35] LABS: Hepatitis C Ab Qual. W/ RFX NEGATIVE (Negative)
[2024-06-19] MEDS: IOPAMIDOL-370 (76%);100ML BOTTLE 75 ML IV (18:42)
[2024-06-19] MEDS: SODIUM CHLORIDE 0.9% 10ML SYR (RAD ONLY) 10 ML IV (18:43)
[2024-06-19 19:02] LABS: Troponin I < 0.01 ng/ml (0.00-0.034)
--- NOTE | 2024-06-22 07:44 | PC.NURSE ---
I spoke with about final micro results on urine. No changes needed for treatment plan.
== END 2024-06-19 20:29 | disposition home or self-care (01) ==
PROVIDERS: Physician Assistant; Emergency Provider Emergency Medicine; PCP Family Medicine
DX: R10.11 Right upper quadrant pain (principal); N39.0 Urinary tract infection, site not specified; K76.0 Fatty (change of) liver, not elsewhere classified; Z11.59 Encounter for screening for other viral diseases; Z11.4 Encounter for screening for human immunodeficiency virus [HIV]
CPT/HCPCS: 74177; 80053; 81001; 83605; 83690; 84484; 85025; 86803; 87086; 87389; 93005; 96374; 96375; 99285; J2270; J2405; Q9967

== ENCOUNTER 2024-11-11 17:29 | Emergency (ER) | payer MEDICARE, SELFPAY ==
--- NOTE | 2024-11-11 17:28 | CT_ITS ---
PROCEDURE INFORMATION: Exam: CT Cervical Spine Without Contrast Exam date and time: 11/11/2024 5:53 PM Age: 69 years old Clinical indication: Injury or trauma; Fall; Blunt trauma TECHNIQUE: Imaging protocol: Computed tomography of the cervical spine without contrast. Radiation optimization: All CT scans at this facility use at least one of these dose optimization techniques: automated exposure control; mA and/or kV adjustment per patient size (includes targeted exams where dose is matched to clinical indication); or iterative reconstruction. COMPARISON: No relevant prior studies available. FINDINGS: Vertebrae: No acute fracture. Minimal anterolisthesis of C3 on C4. Straightening of cervical spine. Facet osteoarthrosis within cervical spine. Degenerative changes of atlantodental articulation. Mild degenerative disc disease C4-C5, C5-C6 levels. Moderate to severe degenerative disc disease at C6-C7 level. Paranasal sinuses: Scattered minimal mucosal thickening. Lungs: 0.2 cm RIGHT upper lobe nodule. Soft tissues: Unremarkable. IMPRESSION: 1. No fracture. 2. Pulmonary nodules. For patients at low risk (minimal or absent history of smoking and of other known risk factors), no routine follow-up is indicated. For patients at high risk (history of smoking or of other known risk factors), consider optional CT at 12 months. (ashley Hidalgo al., Fleischner Society, 2017)
--- NOTE | 2024-11-11 17:28 | CT_ITS ---
PROCEDURE INFORMATION: Exam: CT Maxillofacial Without Contrast Exam date and time: 11/11/2024 5:52 PM Age: 69 years old Clinical indication: Face pain; Additional info: Facial pain TECHNIQUE: Imaging protocol: Computed tomography of the face without contrast. Radiation optimization: All CT scans at this facility use at least one of these dose optimization techniques: automated exposure control; mA and/or kV adjustment per patient size (includes targeted exams where dose is matched to clinical indication); or iterative reconstruction. COMPARISON: No relevant prior studies available. FINDINGS: Paranasal sinuses: Scattered minimal mucosal thickening. No significant air-fluid levels. Orbital cavities: Unremarkable as visualized. Bones: No acute fracture. Soft tissues: Unremarkable. IMPRESSION: No fracture.
--- NOTE | 2024-11-11 17:28 | CT_ITS ---
PROCEDURE INFORMATION: Exam: CT Head Without Contrast Exam date and time: 11/11/2024 5:50 PM Age: 69 years old Clinical indication: Injury or trauma; Fall; Blunt trauma (contusions or hematomas) TECHNIQUE: Imaging protocol: Computed tomography of the head without contrast. Radiation optimization: All CT scans at this facility use at least one of these dose optimization techniques: automated exposure control; mA and/or kV adjustment per patient size (includes targeted exams where dose is matched to clinical indication); or iterative reconstruction. COMPARISON: No relevant prior studies available. FINDINGS: Brain: Mild atrophy. No intracranial hemorrhage. No mass. No edema. Cerebral ventricles: No hydrocephalus. Mastoid air cells: No significant effusion. Bones: No calvarial fracture. Soft tissues: Unremarkable. IMPRESSION: 1. No intracranial hemorrhage. 2. See facial bone CT report for additional details.
--- NOTE | 2024-11-11 17:29 | CT_ITS ---
PROCEDURE INFORMATION: Exam: CTA Head With Contrast, Arteriography Exam date and time: 11/11/2024 5:56 PM Age: 69 years old Clinical indication: Syncope and collapse TECHNIQUE: Imaging protocol: Computed tomographic angiography of the head with contrast. Exam focused on the arteries. 3D rendering (Not supervised by radiologist): MIP and/or 3D reconstructed images were created by the technologist. Radiation optimization: All CT scans at this facility use at least one of these dose optimization techniques: automated exposure control; mA and/or kV adjustment per patient size (includes targeted exams where dose is matched to clinical indication); or iterative reconstruction. Contrast material: ISOVUE 370; Contrast volume: 80 ml; Contrast route: INTRAVENOUS (IV); COMPARISON: CT HEAD/BRAIN WO CON 11/11/2024 5:50 PM FINDINGS: ANTERIOR CIRCULATION: Right internal carotid artery: Intracranial segment is patent with no significant stenosis. No aneurysm. Right middle cerebral artery: No occlusion or significant stenosis. No aneurysm. Right anterior cerebral artery: No occlusion or significant stenosis. No aneurysm. Left internal carotid artery: Intracranial segment is patent with no significant stenosis. No aneurysm. Left middle cerebral artery: No occlusion or significant stenosis. No aneurysm. Left anterior cerebral artery: No occlusion or significant stenosis. No aneurysm. POSTERIOR CIRCULATION: Right vertebral artery: No occlusion or significant stenosis. No aneurysm. Left vertebral artery: No occlusion or significant stenosis. No aneurysm. Basilar artery: No occlusion or significant stenosis. No aneurysm. Right posterior cerebral artery: configuration of the right [employer] BUSINESS PARTNER. Left posterior cerebral artery: No occlusion or significant stenosis. No aneurysm. Brain: No definite mass, mass effect, or midline shift. Cerebral ventricles: No ventriculomegaly. Bones/joints: Unremarkable. No acute fracture. Soft tissues: Unremarkable. IMPRESSION: No significant intracranial arterial abnormality.
--- NOTE | 2024-11-11 17:29 | CT_ITS ---
PROCEDURE INFORMATION: Exam: CTA Neck With Contrast Exam date and time: 11/11/2024 5:56 PM Age: 69 years old Clinical indication: Syncope and collapse TECHNIQUE: Imaging protocol: Computed tomographic angiography of the neck with contrast. Exam focused on the cervical segments of the vasculature. 3D rendering (Not supervised by radiologist): MIP and/or 3D reconstructed images were created by the technologist. Radiation optimization: All CT scans at this facility use at least one of these dose optimization techniques: automated exposure control; mA and/or kV adjustment per patient size (includes targeted exams where dose is matched to clinical indication); or iterative reconstruction. Contrast material: ISOVUE 370; Contrast volume: 80 ml; Contrast route: INTRAVENOUS (IV); COMPARISON: CT ANGIO NECK 11/11/2024 5:56 PM FINDINGS: Right common carotid artery: No stenosis. No dissection or occlusion. Right internal carotid artery: 0% stenosis of the right internal carotid artery per NASCET criteria. Right external carotid artery: No occlusion or stenosis of the origin. Left common carotid artery: No stenosis. No dissection or occlusion. Left internal carotid artery: 0% stenosis of the left internal carotid artery per NASCET criteria. Left external carotid artery: No occlusion or stenosis of the origin. Right vertebral artery: No stenosis. No dissection or occlusion. Left vertebral artery: Left vertebral artery is dominant. Soft tissues: Normal. No significant soft tissue swelling. Bones/joints: No acute fracture. IMPRESSION: No significant abnormality of the carotid and vertebral arteries. REFERENCES: NASCET CRITERIA. The degree of stenosis in the cervical segment of the internal carotid artery is based on NASCET criteria. Normal is no stenosis. Mild is less than 50% stenosis. Moderate is 50-69% stenosis. Severe is 70% to 99% stenosis. Total occlusion is no detectable patent lumen.
[2024-11-11 17:31] VITALS: BP 150/84; BP 164/98; PULSE 81; PULSE 82; RESP 10; RESP 13; TEMP 36.7; O2SAT 95; O2SAT 98; BMI 25.4
--- NOTE | 2024-11-11 17:34 | ED_ITS ---
<Statement entered by Aleks Velez MD - 11/11/24 23:23> I was consulted by the GREGOR, and we discussed the complexity of the problems being addressed. I approved the treatment and management plan for this patient's care in the emergency department, thus performing a substantive portion of the medical decision making. Aleks Velez MD, ROBERT, FACEP Discharge Plan Disposition Patient Disposition: Home, Self-Care Prescriptions Prescriptions: New methocarbamol 1,000 mg tablet 1,000 mg PO Q8H Qty: 90 0RF No Action gabapentin 100 mg capsule 100 mg PO DAILY peg 3350-electrolytes [Golytely] 236-22.74-6.74 -5.86 gram recon soln 240 ml PO Q10M Qty: 4000 0RF Rx Instructions: until fecal effluent is clear albuterol sulfate 200 PUFFS HFA aerosol inhaler 1 - 2 puffs IH Q4HP PRN (Reason: Shortness Of Breath) Qty: 1 0RF citalopram [Celexa] 40 MG tablet 40 mg PO DAILY pravastatin 10 MG tablet 10 mg PO HS lisinopril 5 MG tablet 5 mg PO DAILY ondansetron 4 mg tablet,disintegrating 4 mg PO TID PRN (Reason: nausea and vomiting) 3 Days Qty: 9 0RF cephalexin 500 mg capsule 500 mg PO Q12H 7 Days Qty: 14 0RF Referrals Follow up/Referrals: Raul Fang MD [Primary Care Provider, Medical] - See instructions Activity Restrictions/Add. Instructions Additional Instructions/Restrictions: May use Tylenol or ibuprofen for pain. Use ice for your face. Take medication as directed. If you have any other problems or concerns please return to the ED immediately Clinical Impressions Clinical Impression: Fall, Syncope Instructions Patient Instructions: DI for Syncope in Adults (Fainting), How to Prevent Falls Print Language Print Language: Qatari Discharge ED Provider: Aleks Velez General Adult HPI General Chief complaint: Fall Stated complaint: fall Time Seen by Provider: 11/11/24 17:31 Related Data Home Medications ?Medication ?Instructions ?Recorded ?Confirmed citalopram 40 mg tablet (Celexa) 40 mg PO DAILY Depres keyur 04/06/20 08/26/23 lisinopril 5 mg tablet 5 mg PO DAILY bp 04/06/20 pravastatin 10 mg tablet 10 mg PO HS Cholesterol 11/2708/26/23 gabapentin 100 mg capsule 100 mg PO DAILY 06/21/20 Previous Rx's ?Medication ?Instructions ?Recorded albuterol sulfate 90 mcg/actuation 1 - 2 puffs IH Q4HP PRN Shortness 10/19/20 aerosol inhaler Of Breath #1 ea peg 3350-electrolytes 236 240 ml PO Q10M #4,000 mL gram-22.74 gram-6.74 gram-5.86 gram solution (Golytely) cephalexin 500 mg capsule 500 mg PO Q12H 7 days #14 ca ps 06/19/24 ondansetron 4 mg disintegrating 4 mg PO TID PRN nausea and 06/19/24 tablet vomiting 3 days #9 tabs methocarbamol 1,000 mg tablet 1,000 mg PO Q8H #90 tabs 11/11/24 Allergies Allergy/AdvReac Type Severity Reaction Status Date / Time No Known Drug Allergies Allergy Unknown Hives Verified 06/19/24 16:38 (NKDA) [facility] Disclaimer: The information contained in this section may have been updated after the patient was seen, as this information can be updated by other users. Medical History (Updated 11/11/24 @ 20:07 by Viviana Jimenez (ED), LEARNING AND DEVELOPMENT ASSISTANT) Restless leg syndrome Depression Anxiety Hyperlipemia Hypertension Surgical History Status post trigger finger release History of carpal tunnel release History of hysterectomy Family History Other No significant family history Social History Smoking Status: Never smoker second hand exposure: No alcohol intake: never substance use type: denies use current occupational status: other Travel in the last 8 weeks?: None household members: spouse housing: house current occupational exposures/hazards: No caffeine: Yes Have you lived/traveled outside US in past 30 days?: No Contact w/someone who lives/traveled outside US past 30 days?: No Exposure to someone with infectious disease in past 14 days?: No Do you have a fever (greater than 100.4 F or 38 C)?: No Have you tested positive for COVID-19?: No Exposed to someone with COVID-19 in past 14 days?: No Do you have a sore throat?: No Do you have a cough?: No Do you have any weakness?: No Do you have any diarrhea?: No Are you experiencing any unusual bleeding?: No Do you have any muscle aches/pain?: No Do you have any abdominal pain?: No Are you experiencing loss of taste or smell?: No Other Medical History Have you received the Flu Vaccine for this season: Yes Have you received the Pneumonia Vaccine: No ROS Obtained: Yes Systems reviewed as appropriate & no additional complaints except as documented Constitutional Constitutional: Reports as per HPI Physical Exam General General appearance: alert and in distress Head Head exam: other (facial abrasions) Eye Eye exam: Present PERRL and EOMI Chest Chest inspection: Present symmetric chest wall rise Respiratory Respiratory exam: Present normal lung sounds bilaterally Cardiovascular Cardiovascular exam: Present regular rate, +S2 and +S3 Abdominal Exam Abdominal exam: Present soft and normal bowel sounds Extremities Exam Extremities exam: Present normal inspection and full ROM Back Exam Back exam: Present normal inspection Neurological Exam Neurological exam: Present alert and oriented X3 Psychiatric Psychiatric exam: Present normal mood Skin Skin exam: Present warm, dry and other (facial abrasion) Medical Decision Making Medical Records Screening: Per USPSTF and CDC recommendations, given the prevalence of disease in our region, it is our hospital?s policy to screen for HIV and viral Hepatitis for all patients aged 18 and over and those with ongoing risk factors. Bean Inquiry Pt receiving controlled substance: No Bean was queried for this patient: No Vital Signs: 11/11/24 17:31 11/11/24 17:31 11/11/24 18:00 Temperature 98.1 F Temperature Source Oral Pulse Rate 82 78 Pulse Rate [Left Radial] 81 Respiratory Rate 13 10 L 14 Blood Pressure 164/98 H 160/82 H Blood Pressure [Right Arm] 150/84 H Blood Pressure Mean [Right Arm] 106 02 Sat by Pulse Oximetry 98 95 95 Oxygen Delivery Method 11/11/24 18:27 11/11/24 18:30 11/11/24 20:07 Temperature 98.1 F Temperature Source Pulse Rate 80 74 Pulse Rate [Left Radial] Respiratory Rate 17 14 Blood Pressure 162/86 H 161/78 H Blood Pressure [Right Arm] Blood Pressure Mean [Right Arm] 02 Sat by Pulse Oximetry 98 95 Oxygen Delivery Method Room Air Lab Data Lab Results 11/11/24 17:25: WBC 8.8, RBC 3.93 L, Hgb 12.0 L, Hct 35.5 L, MCV 90.3, MCH 30.5, MCHC 33.8, RDW 13.7, Plt Count 215, MPV 11.0 H, Neut % (Auto) 53.5, Lymph % (Auto) 36.1, Edmunds % (Auto) 8.7, Eos % (Auto) 1.3, Baso % (Auto) 0.2, Neut # (Auto) 4.7, Lymph # (Auto) 3.2, Edmunds # (Auto) 0.8, Eos # (Auto) 0.1, Baso # (Auto) 0.0, Sodium 140, Potassium 4.0, Chloride 107, Carbon Dioxide 28, Anion Gap 9.0, BUN 17, Creatinine 0.90, Estimated Creat Clear 51, Estimated GFR 62, Est GFR ( Amer) 75, Glucose 102 H, Calcium 9.6, Magnesium 1.6, Total Bilirubin 0.3, AST 36, ALT 19, Alkaline Phosphatase 113, Troponin I < 0.01, Total Protein 7.8, Albumin 4.6, Globulin 3.2, Albumin/Globulin Ratio 1.4, Lipase 67 11/11/24 17:25 11/11/24 17:25 Orders (Tests/Meds): ED MEDICATIONS Discontinued Medications Generic Name Dose Route Start Last Admin Trade Name Lukeq PRN Reason Stop Dose Admin Acetaminophen 1,000 mg 11/11/24 17:35 11/11/24 18:09 Acetaminophen 1,000mg/100ml Vial IV 11/11/24 17:36 1,000 mg ONCE ONE Administration Dexamethasone Sodium Phosphate 8 mg 11/11/24 19:09 11/11/24 19:25 Dexamethasone 4mg/Ml 1ml Vial IV 11/11/24 19:10 8 mg ONCE ONE Administration Diphenhydramine HCl 25 mg 11/11/24 19:09 11/11/24 19:25 Diphenhydramine 50mg/Ml Vial IV 11/11/24 19:10 25 mg ONCE ONE Administration Iopamidol 80 ml 11/11/24 17:57 11/11/24 17:58 Iopamidol-370 (76%);100ml Bottle IV 11/11/24 17:58 80 ml ONCE ONE Administration Ketorolac Tromethamine 30 mg 11/11/24 17:35 11/11/24 18:08 Ketorolac 30mg/Ml Vial IV 11/11/24 17:36 30 mg ONCE ONE Administration Metoclopramide HCl 10 mg 11/11/24 19:09 11/11/24 19:25 Metoclopramide Hcl 10mg/2ml Vial IVP 11/11/24 19:10 10 mg ONCE ONE Administration Sodium Chloride 10 ml 11/11/24 17:57 11/11/24 17:58 Sodium Chloride 0.9% 10ml Syr (Rad Only) IV 12/11/24 17:56 10 ml NEEDED PRN Administration Maintain IV Site Sodium Chloride 50 ml 11/11/24 17:57 11/11/24 17:58 0.9 % Sodium Chloride 50 Ml Vial IV 11/11/24 17:58 50 ml ONCE ONE Administration ORDERS Category Date Time Status CT angio head Stat Cat Scan 11/11/24 17:[address] angio neck Stat Cat Scan 11/11/24 17:[address] cervical spine wo con Stat Cat Scan 11/11/24 17:[address] facial bones wo con Stat Cat Scan 11/11/24 17:[address] head/brain wo con Stat Cat Scan 11/11/24 17:28 Completed CBC [Complete Blood Count Auto Diff] Stat Lab 11/11/24 17:25 Completed Comprehensive Metabolic Panel Stat Lab 11/11/24 17:25 Completed Lipase Stat Lab 11/11/24 17:25 Completed Magnesium Stat Lab 11/11/24 17:25 Completed Trop I [Troponin I] Stat Lab 11/11/24 17:25 Completed Medical Decision Narrative: patient is a 69-year-old female presenting to the emergency department for evaluation of syncopal episode where she had a fall on her face injuring her chin, forehead and nose. She denies any back pain and no loss of consciousness no blood thinners. Patient is hemodynamically stable and nontoxic-appearing upon arrival, afebrile. Differential diagnosis includes syncopal episode, ACS, facial injuries, among others. Workup will be conducted with hematologic labs, specific imaging. Initial inventions include crystalloid bolus, analgesics. Initial workup reviewed by [facility] hematologic labs are nonactionable. All imaging was without anything acute no fractures. Patient will be sent home with anti- inflammatories and she will be followed up with her PCP. Patient safe for discharge home. Critical Care Critical Care Time Critical Care Time: No
--- OUTSIDE RECORDS SUMMARY | 2024-11-11 17:34 | XMS_ITS | Encounter Summary ---
[facility] Address [address] [place] [phone] Care Team Providers Care Paramedic Rn Name Role Phone Raul Fang MD Primary Care Provider + Reason for Visit * Reason Comments Med Refill Encounter Details Date Type Department Care Team (Late st Contact Info) Description 10/11/2024 Refill [facility] [address] [place] [address] Raul Fang MD [address] [place] [address] Chronic left-sided lumbar radiculopathy Social History Tobacco Use Types Packs/Day Years Used Date Smoking Tobacco: Former Cigarettes 0.3 44.9 S tarted: 12/02/1979 Smokeless Tobacco: Never Comments:Quit ,start Alcohol Use Standard Drinks/Week Comments Not Currently 0 (1 standard drink = 0.6 oz pure alcohol) Haven't consume anything for 5yrs PHQ-2 Answer Date Recorded Retired PHQ-9: Brief Depression Severity Measure Score 0 08/08/2022 PHQ-2 Answer Date Recorded Patient Health Questionnaire-2 Score 0 08/15/2024 Comments Unknown Sex and Gender Information Value Date Recorded Sex Assigned at Female 08/08/2024 9:50 AM EDT Legal Sex Female 11:50 AM EDT Gender Identity Not on file Sexual Orientation Straight 08/08/2024 9: 50 AM EDT documented as of this encounter Plan of Treatment Upcoming Encounters Date Type Department Care Team (Late st Contact Info) Description 08/18/2025 2:15 PM EDT Office Visit [facility] [address] [place] [address] Raul Fang MD [address] [place], [place] [id number] documented as of this encounter Visit Diagnoses Diagnosis Chronic left-sided lumbar radiculopathy documented in this encounter Additional Health Concerns Assessment Noted Time PHQ-2 Depression Total Score: 2 05/05/19 24 2:13 PM EST documented as of this encounter Care Teams Paramedic Rn Relationship Specialty Start Date End Date Raul Fang MD [address] [place] [address] PCP - General Family Medicine 08/07/21 documented as of this encounter
--- OUTSIDE RECORDS SUMMARY | 2024-11-11 17:34 | XMS_ITS | Encounter Summary ---
[facility] Address [address] [place] [address] Care Team Providers Care Business Analytics Director Name Role Phone Raul Joshua MD Primary Care Provider + Reason for Visit * Reason Onset Date Comments Med Management 09/16/2024 Encounter Details Date Type Department Care Team (Late st Contact Info) Description 09/16/2024 Telephone [facility] [address] [place] [address] Raul Joshua MD [address] [place] [address] Med Management Social History Tobacco Use Types Packs/Day Years [...] AM EDT documented as of this encounter Miscellaneous Notes * Telephone Encounter - Erin Crum MA - 09/19/2024 10:36 AM EDT Lvm informing pt. Suggested to c/b if she needed a rf on Flovent. * Telephone Encounter - Raul Joshua MD - 09/17/2024 10:26 AM EDT There is not a cheaper alternative that I am aware of. She should return to using the Flovent * Telephone Encounter - Erin Crum MA - 09/16/2024 4:11 PM EDT [facility] pharmacist stated NO PA is needed. $105.10 is the pts copay. Pt requesting cheaper alternative. * Telephone Encounter - Jelly Tilley RegSched Rep - 09/16/2024 3:04 PM EDT Provider: DR JOSHUA Caller: Maritza Pascual Relationship to Patient: Self Pharmacy: [facility] Reason for Call: THE PATIENT STATED THAT THE INHALER THAT WAS PRESCRIBED ON 09/08/24 IS OVER 100.00THE PATIENT WOULD LIKE TO KNOW IF THERE IS ANOTHER INHALER THAT IS CHEAPER OR ANOTHER MEDICATION THAT COULD REPLACE IT? documented in this encounter Plan of Treatment Upcoming Encounters Date Type Department Care Team (Late st Contact Info) Description 08/18/2025 2:15 PM EDT Office Visit [facility] [address] [facility] [place] [phone] Raul Joshua MD [address] [place] [address] documented as of this encounter Visit Diagnoses Not on filedocumented in this encounter Additional Health Concerns Assessment Noted Time PHQ-2 Depression Total Score: 2 05/05/19 24 2:13 PM EST documented as of this encounter Care Teams Business Analytics Director Relationship Specialty Start Date End Date Raul Joshua MD [address] [place] [address] PCP - General Family Medicine 08/07/21 documented as of this encounter
--- OUTSIDE RECORDS SUMMARY | 2024-11-11 17:34 | XMS_ITS | Encounter Summary ---
[facility] Address [address] [place] [phone] Care Team Providers Care Wire Machine Cutter Name Role Phone Raul Fang MD Primary Care Provider + Reason for Visit * Reason Comments Med Refill Encounter Details Date Type Department Care Team (Late st Contact Info) Description 10/21/2024 Refill [facility] [address] [place] [address] Raul Fang MD [address] [place] [address] Fibromyalgia Social History Tobacco Use Types Packs/Day Years [...] Description 08/18/2025 2:15 PM EDT Office Visit [facility] [address] [place] [address] Raul Fang MD [address] [place] [address] documented as of this encounter Visit Diagnoses Diagnosis Fibromyalgia Unspecified myalgia and myositis documented in this encounter Additional Health Concerns Assessment Noted Time PHQ-2 Depression Total Score: 2 05/05/19 24 2:13 PM EST documented as of this encounter Care Teams Wire Machine Cutter Relationship Specialty Start Date End Date Raul Fang MD [address] [place] [address] PCP - General Family Medicine 08/07/21 documented as of this encounter
--- OUTSIDE RECORDS SUMMARY | 2024-11-11 17:34 | XMS_ITS | Encounter Summary ---
[facility] Address [address] [place] [phone] Care Team Providers Care Dump Truck Driver Off Highway Name Role Phone Raul Fang MD Primary Care Provider + Reason for Visit * Reason Comments Med Refill Encounter Details Date Type Department Care Team (Late st Contact Info) Description 06/06/[address] [facility] [address] [place] [address] Raul Fang MD [address] [place] [address] Acute left lumbar radiculopathy Social History Tobacco Use Types Packs/Day Years Used Date Smoking Tobacco: Former Cigarettes Smokeless Tobacco: Never Comments:Quit ,start Alcohol Use Standard Drinks/Week Comments Not Currently 0 (1 standard drink = 0.6 oz pure alcohol) Haven't consume anything for 5yrs PHQ-2 Answer Date Recorded Retired PHQ-9: Brief Depression Severity Measure Score 0 02/07/2022 Comments Unknown Sex and Gender Information Value Date Recorded Sex Assigned at Female 08/08/2024 9:50 AM EDT Legal Sex Female 11:50 AM EDT Gender Identity Not on file Sexual Orientation Straight 08/08/2024 9: 50 AM EDT documented as of this encounter Plan of Treatment Upcoming Encounters Date Type Department Care Team (Late st Contact Info) Description 08/18/2025 2:15 PM EDT Office Visit [facility] [address] [place] [address] Raul Fang MD [address] [place] [address] documented as of this encounter Visit Diagnoses Diagnosis Acute left lumbar radiculopathy documented in this encounter Care Teams Dump Truck Driver Off Highway Relationship Specialty Start Date End Date Raul Fang MD [address] [place] [address] PCP - General Family Medicine 08/07/21 documented as of this encounter
--- OUTSIDE RECORDS SUMMARY | 2024-11-11 17:34 | XMS_ITS | Encounter Summary ---
[facility] Address [address] [place] [phone] Care Team Providers Care Plastic Cablemaking Machine Operator Name Role Phone Raul Fang MD Primary Care Provider + Reason for Visit * Reason Comments Med Refill Encounter Details Date Type Department Care Team (Late st Contact Info) Description 11/08/2024 Refill [facility] [address] [place] [address] Raul Fang MD [address] [place] [address] Chronic left-sided lumbar radiculopathy; Lumbosacral radiculopathy at S1 Social History Tobacco Use Types Packs/Day Years [...] Description 08/18/2025 2:15 PM EDT Office Visit [facility] [address] [place] [phone] Raul Fang MD [address] [place] [address] documented as of this encounter Visit Diagnoses Diagnosis Chronic left-sided lumbar radiculopathy Lumbosacral radiculopathy at S1 documented in this encounter Additional Health Concerns Assessment Noted Time PHQ-2 Depression Total Score: 2 05/05/19 24 2:13 PM EST documented as of this encounter Care Teams Plastic Cablemaking Machine Operator Relationship Specialty Start Date End Date Raul Fang MD [address] [place] [address] PCP - General Family Medicine 08/07/21 documented as of this encounter
--- OUTSIDE RECORDS SUMMARY | 2024-11-11 17:34 | XMS_ITS | Clinical Summary ---
[facility] Organization [facility] Address [address] [place] [address] Care Team Providers Care [employer] Equipment Repairer Name Role Phone Raul Fang MD Primary Care Provider + Allergies No known active allergies Medications meclizine (ANTIVERT) 25 MG tablet Take 1 tablet by mouth 3 (Three) Times a Day As Needed for Dizziness. 30 tablet 02/04/20 23 Active pseudoephedrine (Sudafed) 30 MG tabletIndications :Non-recurrent acute serous otitis media of both ears Take 1 tablet by mouth Every 4 (Four) Hours As Needed for Congestion. 30 tablet 1 08/13/19 24 Active fluticasone (Flovent HFA) 220 MCG/ACT inhalerIndication s:Mild persistent asthma without complication Inhale 2 puffs 2 (Two) Times a Day. 12 g 11 08/19/19 24 Active losartan (COZAAR) 25 MG tabletIndications :Essential hypertension Take 1 tablet by mouth Daily. 90 tablet 04/27/19 25 Active rOPINIRole (REQUIP) 1 MG tabletIndications :Restless legs syndrome TAKE 1 TABLET BY MOUTH EVERY NIGHT. 30 tablet 4 07/15/19 25 Active montelukast (SINGULAIR) 10 MG tabletIndications :Mild persistent asthma without complication,Non- seasonal allergic rhinitis due to pollen TAKE 1 TABLET BY MOUTH ONCE DAILY EVERY NIGHT 90 tablet 07/15/19 25 Active citalopram (CeleXA) 40 MG tabletIndications :Mood disorder TAKE 1 TABLET BY MOUTH DAILY. 30 tablet 4 08/16/19 25 Active cetirizine (zyrTEC) 10 MG tabletIndications :Non-seasonal allergic rhinitis due to pollen TAKE 1 TABLET BY MOUTH 2 (TWO) TIMES A DAY. 60 tablet 10 08/16/19 25 Active albuterol sulfate HFA 108 (90 Base) MCG/ACT inhalerIndication s:Mild persistent asthma without complication INHALE 2 PUFFS BY MOUTH EVERY 4 (FOUR) HOURS NEEDED FOR WHEEZING 8.5 g 4 09/09/19 25 Active fluticasone (FLONASE) 50 MCG/ACT nasal sprayIndications: Non-seasonal allergic rhinitis due to pollen SHAKE WELL AND INHALE 2 SPRAYS IN EACH NOSTRIL DAILY. 16 g 10 09/09/19 25 Active doxycycline (VIBRAMYCIN) 100 MG capsule Take 1 capsule by mouth 2 (Two) Times a Day. 14 capsule 09/14/19 25 Active pravastatin (PRAVACHOL) 20 MG tabletIndications :Hypercholesterol emia Take 1 tablet by mouth Every Night. 90 tablet 1 09/27/19 25 Active budesonide-formot joanna (SYMBICORT) 80-4.5 MCG/ACT inhalerIndication s:Moderate persistent asthma without complication Inhale 2 puffs 2 (Two) Times a Day. 10.2 g 12 09/28/19 25 Active HYDROcodone-aceta minophen (NORCO) 10-325 MG per tabletIndications :Chronic left-sided lumbar radiculopathy TAKE 1 TABLET BY MOUTH EVERY NIGHT AT BEDTIME 30 tablet 10/12/19 25 Active tiZANidine (ZANAFLEX) 4 MG tabletIndications :Fibromyalgia TAKE 1 TABLET BY MOUTH EVERY 8 HOURS NEEDED FOR MUSCLE SPASM MAY CAUSE DROWSINESS 70 tablet 1 10/22/19 25 Active pregabalin (LYRICA) 150 MG capsuleIndication s:Chronic left-sided lumbar radiculopathy,Lum bosacral radiculopathy at S1 TAKE 1 CAPSULE BY MOUTH 2 (TWO) TIMES A DAY MAY CAUSE DROWSINESS 60 capsule 3 11/09/19 25 Active pregabalin (LYRICA) 150 MG capsuleIndication s:Chronic left-sided lumbar radiculopathy,Lum bosacral radiculopathy at S1 Take 1 capsule by mouth 2 (Two) Times a Day. 60 capsule 2 08/16/19 25 025 Discontinued tiZANidine (ZANAFLEX) 4 MG tabletIndications :Fibromyalgia TAKE 1 TABLET BY MOUTH EVERY 8 HOURS NEEDED FOR MUSCLE SPASM MAY CAUSE DROWSINESS 70 tablet 09/06/19 25 025 Discontinued Active Problems Problem Noted Date Diagnosed Date Lumbosacral radiculopathy at S1 02/07/2022 Assessment & Plan (08/15/2024 2:33 PM EDT): Orders: pregabalin (LYRICA) 150 MG capsule; Take 1 capsule by mouth 2 (Two) Times a Day. Non-seasonal allergic rhinitis due to pollen 04/2021 Assessment & Plan (02/07/2022 2:45 PM EST): Not controlled. Add montelukast Fibromyalgia 08/07/2021 Assessment & Plan (08/15/2024 2:33 PM EDT): Orders: methylPREDNISolone (MEDROL) 4 MG dose pack; Take as directed on package instructions. Assessment & Plan (05/12/2024 3:23 PM EST): Muscle pains likely related to uncontrolled fibromyalgia. Increase pregabalin to 150 mg twice daily and reassess in 3 months Assessment & Plan (02/07/2022 2:42 PM EST): Stable Mood disorder 08/07/2021 Assessment & Plan (05/12/2024 3:24 PM EST): Patient describes more feelings of sadness recently but cannot be more specific about timeframe. We discussed seasonal affective disorder and patient believes this may describe her although is not confident that on an annual basis she has more significant decline in mood then at other times of year. She does enjoy the summer months much more as she prefers to be outdoors as much as possible Assessment & Plan (02/07/2022 2:43 PM EST): Psychological condition is improving with treatment. Continue current treatment regimen. Psychological condition will be reassessed at the next regular appointment. Restless legs syndrome 08/07/2021 Assessment & Plan (05/12/2024 3:24 PM EST): Stable. Patient will continue ropinirole 1 mg nightly Assessment & Plan (02/07/2022 2:44 PM EST): Controlled w/ Requip Mild persistent asthma without complication 03/2021 Assessment & Plan (02/07/2022 2:43 PM EST): Asthma is not controlled. The patient is experiencing weekly daytime asthma symptoms. She is experiencing weekly nighttime asthma symptoms. Discussed monitoring symptoms and use of quick-relief medications and contacting us early in the course of exacerbations. Reduce exposure to inhaled allergens: keep pets out of bedroom with bedroom door closed. Medications: Start Montelukast. Discussed medication dosage, use, side effects, and goals of treatment in detail. Assessment & Plan (08/07/2021 3:34 PM EDT): Asthma is unchanged. The patient is experiencing monthly daytime asthma symptoms. She is experiencing no nighttime asthma symptoms. Discussed monitoring symptoms and use of quick-relief medications and contacting us early in the course of exacerbations. Medications: no change. Discussed medication dosage, use, side effects, and goals of treatment in detail. Follow up in 3 month, or sooner should new symptoms or problems arise. Hypercholesterolemia 08/07/2021 Assessment & Plan (05/12/2024 3:23 PM EST): Stable. Do not anticipate changes as long as patient has been taking medication. Reassess annually Assessment & Plan (02/07/2022 2:42 PM EST): Lipid abnormalities are controlled. Pharmacotherapy as ordered. Lipids will be reassessed in 1 year. Assessment & Plan (08/07/2021 3:35 PM EDT): Lipid abnormalities are improving with treatment. Pharmacotherapy as ordered. Lipids will be reassessed in 3 months. Essential hypertension 08/07/2021 Assessment & Plan (08/15/2024 2:33 PM EDT): Hypertension is stable and controlled Continue current treatment regimen. Blood pressure will be reassessed in 6 months. Assessment & Plan (05/12/2024 3:24 PM EST): Hypertension is stable and controlled Continue current treatment regimen. Blood pressure will be reassessed in 3 months. Surveillance labs ordered Assessment & Plan (02/07/2022 2:41 PM EST): Hypertension is improving with treatment. Continue current treatment regimen. Dietary sodium restriction. Blood pressure will be reassessed at the next regular appointment. Assessment & Plan (08/07/2021 3:33 PM EDT): Hypertension is unchanged. Continue current treatment regimen. Blood pressure will be reassessed in 3 months. Encounters Date Type Department Care Team Description 11/08/2024 Refill [facility] [address] [phone] Raul Fang MD Chronic left-sided lumbar radiculopathy; Lumbosacral radiculopathy at S1 10/21/2024 Refill [facility] [address] [phone] Raul Fang MD Fibromyalgia 10/11/2024 Refill [facility] [address] [phone] Raul Fang MD Chronic left-sided lumbar radiculopathy 09/16/2024 Telephone [facility] [address] [phone] Raul Fang MD Med Management 09/07/2024 Refill [facility] [address] [phone] Raul Fang MD Chronic left-sided lumbar radiculopathy; Mild persistent asthma without complication; Non-seasonal allergic rhinitis due to pollen 09/02/2024 Refill [facility] [address] [place] [address] Raul Fang MD Fibromyalgia 08/15/2024 2:15 PM EDT Office Visit [facility] [address] [place] [address] Raul Fang MD Medicare annual wellness visit, subsequent (Primary Dx); Annual physical exam; Fibromyalgia; Essential hypertension; Chronic left-sided lumbar radiculopathy; Lumbosacral radiculopathy at S1; Chronic left-sided lumbar radiculopathy; Encounter for screening mammogram for malignant neoplasm of breast 08/15/2024 Refill [facility] [address] [place] [address] Raul Fang MD Mood disorder; Non-seasonal allergic rhinitis due to pollen 08/15/2024 Travel from Last 3 Months Immunizations Immunization Administration Dates Next Due ABRYSVO (RSV, 60+ or pregnan t women 32-36 wks) 01/15/2023 COVID-19 (MODERNA) 1st,2nd,3 rd Dose Monovalent 07/17/2021,01/04/2021,06/06/2020,2020 COVID-19 (MODERNA) BIVALENT 12+YRS 01/02/2022 Fluad Quad 65+ 11/29/2020 Fluzone >6mos 03/17/2016 Fluzone High-Dose 65+yrs 01/15/2023,01/02/2022 Influenza Injectable Mdck Pf Quad 04/06/2017 Influenza, Unspecified 04/06/2017 Pneumococcal Conjugate 20-Va lent (PCV20) 02/07/2022 Td (TDVAX) 05/13/1996 Family History Medical History Relation Name Comments Heart attack Father Dominguez Nixon Heart disease Father Dominguez Nixon He's and I don't know much about him Diabetes Maternal Aunt Geniva Adrianna Arthritis Mother Zeynep Hagan Cancer Mother Zeynep Hagan colon Hyperlipidemia Mother Zeynep Hagan Shes 90 h as had for years Hypertension Mother Zeynep Hagan Migraines Mother Zeynep Hagan COPD Sister Maria Eugenia Dumont Diabetes Sister Maria Eugenia Dumont Thyroid disease Sister Maria Eugenia Dumont Liver disease Son Oswald avalos [place] Relation Name Status Comments Father Dominguez Nixon Maternal Aunt Latasha Rodas Mother Zeynep Hagan Alive Sister Maria Eugenia Dumont Son Oswald avalos Social History Tobacco Use Types Packs/Day Years Used Date Smoking Tobacco: Former Cigarettes 0.3 44.9 S tarted: 12/02/1979 Smokeless Tobacco: Never Tobacco Cessation:Counseling Given: Not Answered Comments:Quit ,start Alcohol Use Standard Drinks/Week Comments [...] Orientation Straight 08/08/2024 9: 50 AM EDT Last Filed Vital Signs Vital Sign Reading Time Taken Comments Blood Pressure 130/70 08/15/2024 1:50 PM EDT Pulse 70 08/15/2024 1:50 PM EDT Temperature 36.6 C (97.8 F) 08/15/2024 1:50 PM EDT Respiratory Rate 20 08/15/2024 1:50 PM EDT Oxygen Saturation 97% 08/15/2024 1:50 PM EDT Inhaled Oxygen Concentration - - Weight 68.9 kg (152 lb) 08/15/2024 1:50 PM EDT Height 154.9 cm (5' 1 ) 08/15/2024 1:50 PM EDT Body Mass Index 28.72 08/15/2024 1:50 PM EDT Plan of Treatment Upcoming Encounters Date Type Department Care Team (Late st Contact Info) Description 08/18/2025 2:15 PM EDT Office Visit [facility] [address] [phone] Raul Fang MD [address] [place] [address] Health Maintenance Due Date Last Done Comments DXA SCAN 1955 COLOGUARD 2000 COLON CANCER SCREENING 5 YEA R SIGMOIDOSCOPY 2000 CT COLONOGRAPHY 2000 FECAL OCCULT BLOOD TEST 2000 FIT Testing (1 year) 2000 ZOSTER VACCINE (1 of 2) 2005 TDAP/TD VACCINES (2 - Tdap) 05/13/2006 05/13/1996 MAMMOGRAM 06/02/2024 06/02/2022, 05/08, 06/02/2022, Additional history exists COVID-19 Vaccine (2024- 6 season) 2024 02/16/2023, 01/02/2022, 07/17/2021, Additional history exists INFLUENZA VACCINE 12/07/2024 01/15/2023, , 11/29/2020, Additional history exists LIPID PANEL 05/12/2025 05/12/2024, 04/10, 02/07/2022 ANNUAL WELLNESS VISIT 08/15/2025 08/15/2024 , 08/15/2024, 05/05/2023, Additional history exists COLONOSCOPY 04/06/2030 04/06/2020 COLORECTAL CANCER SCREENING 04/06/2030 Pneumococcal Vaccine 50+ Completed 02/07/2022 HEPATITIS C SCREENING Completed 06/19/2024 Procedures Procedure Name Priority Date/Time Associated Diagnosis Comments LIPID PANEL Routine 05/12/2024 3:33 PM EST Hypercholesterolemia SCANNED - MAMMO 06/02/2022 from Last 3 Months or Most Recently Relevant to Health Maintenance Results * (ABNORMAL) Lipid Panel (05/12/2024 3:33 PM EST) Total Cholesterol 174 100 - 199 mg/dL [facility] Triglycerides 188(H) 0 - 149 mg/dL [facility] HDL Cholesterol 43 >39 mg/dL [facility] VLDL Cholesterol [place] 32 5 - 40 mg/dL [facility] LDL Chol Calc (NIH) 99 0 - 99 mg/dL [facility] Blood 05/12/2024 3:33 PM EST 05/12/2024 Comment:BLOOD Narrative [facility] ([facility]) - 05/13/2024 10:36 AM EST Performed at: 01 - [facility] [address], [place], [place] [id number] Pasteurizer: Gus Martinez PhD, Phone: [phone] Patient Fasting: Y Raul Fang MD LAB BLOOD ORDERABLES Fin al Result [facility] ([facility]) [address] [place] [address], [place] [phone] [facility] [address] [place] [address], [place] [phone] * SCANNED - MAMMO (06/02/2022) Anatomical Region Laterality Modality Other Raul Fang MD CHART REVIEW TABS Fin al Result from Last 3 Months or Most Recently Relevant to Health Maintenance Insurance MEDICARE ADVANTAGE PPO Care Teams [employer] Equipment Repairer Relationship Specialty Start Date End Date Raul Fang MD [address] [place] [id number] PCP - General Family Medicine 08/07/21
[2024-11-11 17:39] LABS: Hematocrit 35.5 % (37.0-47.0); Hemoglobin 12.0 g/dL (12.2-16.2); Immature Granulocytes % 0.2 %; Mean Corpuscular HGB Conc 33.8 g/dL (31.8-35.4); Mean Corpuscular Hemoglobin 30.5 pg (27.0-31.2); Mean Corpuscular Volume 90.3 fl (81-99); Nucleated Red Blood Cells % 0 %; Platelet Count 215 K/mm3 (142-424); Red Blood Count 3.93 M/mm3 (4.20-5.40); Red Cell Distribution Width-SD 45.3 fL; White Blood Count 8.8 K/mm3 (4.8-10.8)
[2024-11-11 17:49] LABS: Albumin Level 4.6 g/dl (3.5-5.0); Chloride 107 mmol/L (98-107); Sodium 140 mmol/L (136-145)
[2024-11-11 17:50] LABS: Potassium 4.0 mmoL/L (3.5-5.1)
[2024-11-11 17:52] LABS: Alanine Aminotransferase 19 U/L (12-78); Albumin/Globulin Ratio 1.4 (1.1-1.8); Alkaline Phosphatase 113 U/L (38-126); Anion Gap 9.0 mEq/L (5-15); Aspartate Amino Transferase 36 U/L (14-36); Bilirubin,Total 0.3 mg/dl (0.2-1.3); Blood Urea Nitrogen 17 mg/dl (7-17); Carbon Dioxide 28 mmol/L (22.0-30.0); Creatinine Clearance Estimated 51 mL/min (50-200); Creatinine,Serum 0.90 mg/dl (0.52-1.04); Estimated Glomerular Filt Rate 62 ml/min (>60); GFR (African American) 75 ML/MIN (>60); Globulin 3.2 g/dL (1.3-3.2); Lipase 67 U/L (23-300); Total Protein,Serum 7.8 g/dl (6.3-8.2)
[2024-11-11 17:53] LABS: Calcium 9.6 mg/dl (8.4-10.2); Glucose 102 mg/dl (74-100); Magnesium 1.6 mg/dl (1.6-2.3)
[2024-11-11] MEDS: IOPAMIDOL-370 (76%);100ML BOTTLE 80 ML IV (17:58)
[2024-11-11] MEDS: 0.9 % SODIUM CHLORIDE 50 ML VIAL IV (17:58)
[2024-11-11] MEDS: SODIUM CHLORIDE 0.9% 10ML SYR (RAD ONLY) 10 ML IV (17:58)
[2024-11-11 18:00] VITALS: BP 160/82; PULSE 78; RESP 14; O2SAT 95
[2024-11-11] MEDS: KETOROLAC 30MG/ML VIAL 30 MG IV (18:08)
--- NOTE | 2024-11-11 18:08 | ECG_ITS ---
APPROVED REPORT Exam: Resting ECG HR:76 bpm ECG Measurements Heart Rate 76 AXES WI 147 P 77 QRSd 70 QRS 65 QT 384 T 69 QTc 414 Conclusion SINUS RHYTHM WITH SINUS ARRHYTHMIA NORMAL ECG UNCONFIRMED REPORT Electronically signed by : Brett Velez, 11/11/2024 23:28:01
[2024-11-11] MEDS: ACETAMINOPHEN 1,000MG/100ML VIAL 1000 MG IV (18:09)
[2024-11-11 18:14] LABS: Troponin I < 0.01 ng/ml (0.00-0.034)
[2024-11-11 18:27] VITALS: O2SAT 98
[2024-11-11 18:30] VITALS: BP 162/86; PULSE 80; RESP 17; O2SAT 95
[2024-11-11] MEDS: DEXAMETHASONE 4MG/ML 1ML VIAL 8 MG IV (19:25)
[2024-11-11] MEDS: METOCLOPRAMIDE HCL 10MG/2ML VIAL 10 MG IVP (19:25)
[2024-11-11 20:07] VITALS: BP 161/78; PULSE 74; RESP 14; TEMP 36.7; O2SAT 97
== END 2024-11-11 20:12 | disposition home or self-care (01) ==
PROVIDERS: Nurse Practitioner; Emergency Provider Student in an Organized Health Care Education/Training Program; PCP Family Medicine
DX: R55 Syncope and collapse (principal); S00.81XA Abrasion of other part of head, initial encounter; I10 Essential (primary) hypertension; E78.5 Hyperlipidemia, unspecified; W19.XXXA Unspecified fall, initial encounter
CPT/HCPCS: 70450; 70486; 70496; 70498; 72125; 80053; 83690; 83735; 84484; 85025; 93005; 96374; 96375; 99285; J0131; J1100; J1200; J1885; J2765; Q9967